=== PATIENT | male | born 1975 | race Caucasian/White ===

== ENCOUNTER 2018-02-13 22:11 | Emergency (ER) | payer MEDICAID ==
[~2018-02-13] VITALS: Ht 180.3 cm; Wt 88.0 kg
[2018-02-13 22:21] VITALS: BP 131/74
== END 2018-02-14 01:25 | disposition left against medical advice (07) ==
LOC: ER 02-14 00:21
DX: R10.30 Lower abdominal pain, unspecified (principal); Z53.21 Procedure and treatment not carried out due to patient leaving prior to being seen by health care provider